=== PATIENT | male | born 1965 | race Caucasian/White ===

== ENCOUNTER 2017-02-16 11:36 | Emergency (ER) | payer SELFPAY ==
[~2017-02-16] VITALS: Ht 182.9 cm; Wt 84.4 kg
[2017-02-16] MEDS ORDERED: CLOP75TA15 PO (11:54)
[2017-02-16] MEDS ORDERED: LISI10TA5 PO (11:54)
[2017-02-16] MEDS ORDERED: ASPI81TA31 PO (11:54)
--- NOTE | 2017-02-16 12:00 | NUR ---
DR REGAN AT THE BEDSIDE FOR EVAL AND EXAM.
[2017-02-16 12:02] LABS: BASOPHILS # (AUTO) 0.1 K/uL (0.0-8.0); BASOPHILS % (AUTO) 0.6 % (0.0-2.0); EOSINOPHILS % (AUTO) 0.2 % (0.0-7.0); HEMATOCRIT 47.7 % (40-50); HEMOGLOBIN 16.3 G/DL (14.0-18.0); LYMPHOCYTES # (AUTO) 3.6 K/UL (0.8-4.8); LYMPHOCYTES % (AUTO) 19.7 % (20.5-51.5); MEAN CORPUSCULAR HEMOGLOBIN 29.8 UUG (27.0-31.0); MEAN CORPUSCULAR HGB CONC 34 g/dL (32.0-37.0); MEAN CORPUSCULAR VOLUME 87.2 FL (82.0-92.0); MONOCYTES # (AUTO) 1.2 K/UL (0.1-1.30); MONOCYTES % (AUTO) 6.5 % (0.0-11.0); NEUTROPHILS # (AUTO) 13.4 K/UL (1.8-8.9); PLATELET COUNT (AUTO) 361 K/UL (150-450); RED BLOOD CELL COUNT(AUTO) 5.47 MIL/UL (4.7-6.1); WHITE BLOOD COUNT (AUTO) 18.3 K/UL (4.0-11.2)
[2017-02-16 12:19] LABS: BILIRUBIN,TOTAL 0.8 mg/dL (0.2-1.0); TOTAL PROTEIN, SERUM 8.4 g/dL (6.4-8.2)
--- NOTE | 2017-02-16 12:29 | NUR ---
Called [facility] center per Dr Yarbrough request and spoke with
--- NOTE | 2017-02-16 12:32 | NUR ---
Facesheet faxed to Sharon at [facility] ([phone]) as requested.
--- NOTE | 2017-02-16 12:36 | NUR ---
Dr. Yarbrough spoke with Dr. Vargas ( on-call music leader at [facility] ) via telephone.
[2017-02-16 12:39] VITALS: BP 136/86
--- NOTE | 2017-02-16 12:42 | NUR ---
Per Dr. Linnea Vargas accepted the patient, I called [facility] for follow up and spoke with Sharon who stated she will speak with the nursing hatchery supervisor and call back.
[2017-02-16 12:45] LABS: BAND % (MANUAL) 2 % (0-10); EOSINOPHILS % (MANUAL) 1 % (0-8); LYMPHOCYTES % (MANUAL) 17 % (20-40); MONOCYTES % (MANUAL) 7 % (2-10); NEUTROPHILS % (MANUAL) 73 % (42-75)
--- NOTE | 2017-02-16 12:48 | NUR ---
Received call from Sharon from [facility] who stated we can transfer the pt, pt will go to room 114, for report. Dr. Vargas accepting.
--- NOTE | 2017-02-16 12:50 | NUR ---
Verified Heparin bolus dose with Ritu GUILLORY.
--- NOTE | 2017-02-16 12:55 | NUR ---
Called 911 for transport to [place] per Dr. Lewis request. Spoke with [phone] who stated he will dispatch the paramedics.
--- NOTE | 2017-02-16 13:15 | NUR ---
911 TRANSPORT AT THE BEDSIDE. PT STATES CP IS 5/10 AND TOLORATABLE. PT LEFT ER VIA EMS TO [facility]. ALL BELONGINGS SENT W/ PT.
--- NOTE | 2017-02-16 13:22 | NUR ---
REPORT GIVEN TO TIGRE AT [facility]).
== END 2017-02-16 13:25 | disposition short-term general hospital (02) ==
LOC: ER 11:36
DX: I21.4 Non-ST elevation (NSTEMI) myocardial infarction (principal); D72.829 Elevated white blood cell count, unspecified; I10 Essential (primary) hypertension; I25.2 Old myocardial infarction; F17.200 Nicotine dependence, unspecified, uncomplicated; Z95.5 Presence of coronary angioplasty implant and graft; Z79.82 Long term (current) use of aspirin
CPT/HCPCS: 36415; 70030-TC; 71010; 85025; 85610; 93005; A4663; J1644; J2270; J2405